=== PATIENT | male | born 1955 | race Caucasian/White ===

== ENCOUNTER → 2017-12-11 | Outpatient (CLI) | payer OTHER ==
[~2017-12-11] MED LIST: CARV25 PO; DIGO.25 PO; WARF5 PO; Zestril40 MG PO
[2017-12-11 12:35] LABS: International Normalized Ratio 2.63; Prothrombin Time Results 28.2 Sec (9.7-11.5)
== END ==
LOC: LAB 12:14 → LAB SHORT 12:14
PROVIDERS: Physician Assistant
DX: Z48.812 Encounter for surgical aftercare following surgery on the circulatory system (principal); Z79.01 Long term (current) use of anticoagulants; Z95.810 Presence of automatic (implantable) cardiac defibrillator
CPT/HCPCS: 85610

== ENCOUNTER → 2018-02-18 | Outpatient (CLI) | payer OTHER ==
[2018-02-18 13:12] LABS: International Normalized Ratio 2.07
== END | disposition home or self-care (01) ==
LOC: LAB SHORT 12:03 → LAB 12:03
PROVIDERS: Physician Assistant
DX: Z79.01 Long term (current) use of anticoagulants (principal); Z51.81 Encounter for therapeutic drug level monitoring; I50.9 Heart failure, unspecified; Z95.810 Presence of automatic (implantable) cardiac defibrillator
CPT/HCPCS: 83880; 85610